=== PATIENT | female | born 1960 | race Caucasian/White ===

== ENCOUNTER 2023-02-26 19:15 | Inpatient (IN) | payer OTHER ==
[~2023-02-26] VITALS: Ht 165.1 cm; Wt 65.8 kg
[~2023-02-26 19:15] MED LIST: BUPROPION HCL100 MG PO; LORATADINE10 MG PO; LORAZEPAM1 MG PO; SYNTHROID75 MCG PO; TRIAMTERENE-HCTZ1 EA PO
[2023-02-26] MEDS ORDERED: KETOROLAC TROMETHAMINE 30 MG/ML VIAL IV STA (19:27)
[2023-02-26] MEDS ORDERED: SODIUM CHLORIDE 0.9% 1000ML 1,000 ML IV STA (19:27)
[2023-02-26] MEDS ORDERED: ACETAMINOPHEN 325 MG TAB PO ONE (19:30)
[2023-02-26 19:59] LABS: BASOPHILS % 0.3 % (0.0-1.0); EOSINOPHILS % 0.1 % (0.0-6.0); HEMATOCRIT 36.6 % (34.2-44.1); HEMOGLOBIN 12.6 g/dL (12.0-16.0); LYMPHOCYTES # (AUTO) 0.9 (1.0-3.2); LYMPHOCYTES % 9.6 % (18.0-39.1); MEAN CORPUSCULAR HGB CONC 34.4 g/dL (31-35); MEAN CORPUSCULAR VOLUME 87.1 fL (81-99); MONOCYTES # (AUTO) 1.4 (0.2-0.8); MONOCYTES % 14.9 % (4.4-11.3); NEUTROPHILS # (AUTO) 7.1 (2.1-6.9); NEUTROPHILS % 74.6 % (38.7-80.0); PLATELET COUNT 193 x10e3/uL (140-360); RED CELL DISTRIBUTION WIDTH 11.4 % (11.7-14.4)
[2023-02-26 20:06] LABS: CLARITY,URINE CLEAR (CLEAR); COLOR,URINE ORANGE (YELLOW); LEUKOCYTE ESTERASE ,URINE TRACE (NEGATIVE); NITRITE,URINE POSITIVE (NEGATIVE); PROTEIN,URINE DIPSTICK 2+ (NEGATIVE)
[2023-02-26 20:07] LABS: KETONES,URINE 1+ (NEGATIVE); URINE UROBILINOGEN 2 mg/dL (0.2 - 1)
[2023-02-26 20:21] LABS: ALBUMIN 3.4 g/dL (3.5-5.0); ANION GAP 15.8 mmol/L (8-16); CALCIUM 9.2 mg/dL (8.4-10.2); CREATININE, SERUM 1.2 mg/dL (0.57-1.11)
[2023-02-26 20:22] LABS: BACTERIA,URINE MODERATE /HPF; EPITHELIAL CELLS,URINE FEW /LPF; WBC,URINE (MAN) 21-50 /HPF (0-5)
[2023-02-26 20:25] LABS: POTASSIUM 2.8 mmol/L (3.5-5.1)
[2023-02-26] MEDS ORDERED: POTASSIUM CHLORIDE 20 MEQ TAB CR PO STA (20:46)
[2023-02-26] MEDS: SODIUM CHLORIDE 0.9% 1000ML 1,000 ML IV SCH (21:23)
[2023-02-26 23:00] VITALS: BP 96/58
[2023-02-27] VITALS (7 sets, daily range): BP systolic 90–140; BP diastolic 50–67
[2023-02-27] MEDS: SODIUM CHLORIDE 0.9% 1000ML 1,000 ML IV SCH ×3 (03:48→20:48)
[2023-02-27] MEDS: Morphine 4mg INJECTION 4 MG/ML INJ IV PRN ×4 (03:51→19:27)
[2023-02-27] MEDS ORDERED: METOPROLOL SUCC25 MG PO (04:26)
[2023-02-27] MEDS ORDERED: DOXYCYCLINE HY100 MG PO (04:28)
[2023-02-27] MEDS ORDERED: TRIAMTERENE-HCTZ1 EA PO (04:46)
[2023-02-27] MEDS ORDERED: ATORVASTATIN CA20 MG PO (04:46)
[2023-02-27] MEDS ORDERED: CETIRIZINE HCL10 MG (04:46)
[2023-02-27] MEDS ORDERED: HYOSCYAMINE0.125 MG PO (04:46)
[2023-02-27] MEDS ORDERED: ASPIRIN81 MG PO (04:46)
[2023-02-27] MEDS ORDERED: ALPRAZOLAM1 MG PO (04:46)
[2023-02-27] MEDS ORDERED: FLONASE ALLERG9.9 ML INH (04:51)
[2023-02-27] MEDS ORDERED: LEVOCETIRIZINE D5 MG (04:51)
[2023-02-27] MEDS ORDERED: KETOTIFEN FUMARA5 ML (04:51)
[2023-02-27] MEDS ORDERED: [UNRECOGNIZED DRUG - OTHER] (04:53)
[2023-02-27 06:08] LABS: BASOPHILS % 0.4 % (0.0-1.0); EOSINOPHILS % 0.4 % (0.0-6.0); HEMATOCRIT 28.7 % (34.2-44.1); HEMOGLOBIN 9.7 g/dL (12.0-16.0); LYMPHOCYTES # (AUTO) 1.4 (1.0-3.2); LYMPHOCYTES % 17.5 % (18.0-39.1); MEAN CORPUSCULAR HGB CONC 33.8 g/dL (31-35); MEAN CORPUSCULAR VOLUME 88.9 fL (81-99); MONOCYTES # (AUTO) 1.4 (0.2-0.8); MONOCYTES % 17.1 % (4.4-11.3); NEUTROPHILS # (AUTO) 5.1 (2.1-6.9); PLATELET COUNT 136 x10e3/uL (140-360); RED BLOOD COUNT 3.23 x10e6/uL (3.6-5.1); RED CELL DISTRIBUTION WIDTH 11.3 % (11.7-14.4)
[2023-02-27 07:17] LABS: ALBUMIN 2.5 g/dL (3.5-5.0); ANION GAP 12.2 mmol/L (8-16); CALCIUM 7.5 mg/dL (8.4-10.2); CREATININE, SERUM 1.03 mg/dL (0.57-1.11); POTASSIUM 3.2 mmol/L (3.5-5.1)
[2023-02-27] MEDS: ONDANSETRON HCL INJ 2MG/ML 2ML 2 MG/ML VIAL IV PRN ×3 (08:35→19:26)
[2023-02-27] MEDS ORDERED: ACETAMINOPHEN 325 MG TAB PO PRN ×2 (17:30→17:45)
[2023-02-27] MEDS ORDERED: PIPERACILLIN/TAZOBACTAM 3.375 GM VIAL ONE (20:33)
[2023-02-28] VITALS (8 sets, daily range): BP systolic 86–115; BP diastolic 51–65
[2023-02-28] MEDS: Morphine 4mg INJECTION 4 MG/ML INJ IV PRN ×2 (00:34→09:18)
[2023-02-28] MEDS: SODIUM CHLORIDE 0.9% 1000ML 1,000 ML IV SCH ×3 (05:35→22:36)
[2023-02-28 08:24] LABS: BASOPHILS % 0.4 % (0.0-1.0); EOSINOPHILS # (AUTO) 0.1 (0.0-0.4); EOSINOPHILS % 0.6 % (0.0-6.0); HEMATOCRIT 28.4 % (34.2-44.1); HEMOGLOBIN 9.6 g/dL (12.0-16.0); LYMPHOCYTES # (AUTO) 1.1 (1.0-3.2); LYMPHOCYTES % 12.5 % (18.0-39.1); MEAN CORPUSCULAR HEMOGLOBIN 30.3 pg (28-32); MEAN CORPUSCULAR HGB CONC 33.8 g/dL (31-35); MEAN CORPUSCULAR VOLUME 89.6 fL (81-99); MONOCYTES # (AUTO) 1.2 (0.2-0.8); MONOCYTES % 12.7 % (4.4-11.3); NEUTROPHILS # (AUTO) 6.6 (2.1-6.9); NEUTROPHILS % 72.9 % (38.7-80.0); PLATELET COUNT 149 x10e3/uL (140-360); RED BLOOD COUNT 3.17 x10e6/uL (3.6-5.1); RED CELL DISTRIBUTION WIDTH 11.6 % (11.7-14.4)
[2023-02-28] MEDS: ONDANSETRON HCL INJ 2MG/ML 2ML 2 MG/ML VIAL IV PRN (09:18)
[2023-02-28] MEDS ORDERED: IOPAMIDOL 610MG/1ML 300 MG/ML VIAL IV ONE (10:38)
[2023-02-28] MEDS ORDERED: DEXAMETHASONE SOD PHOS INJ 4 MG/ML SDV ONE (12:14)
[2023-02-28] MEDS ORDERED: EPHEDRINE SULFATE INJ 50 MG/ML VIAL ONE (12:14)
[2023-02-28] MEDS ORDERED: LIDOCAINE HCL 2% LOCAL INJ 5 ML SDV VIAL INJ ONE (12:14)
[2023-02-28] MEDS ORDERED: ONDANSETRON HCL INJ 2MG/ML 2ML 2 MG/ML VIAL ONE (12:14)
[2023-02-28] MEDS ORDERED: PROPOFOL IV EMULSION 10 MG/ML 20 ML VIAL ONE (12:14)
[2023-02-28] MEDS ORDERED: POVIDONE IODINE 0.05% 0.05 % ML PO ONE (12:14)
[2023-02-28] MEDS ORDERED: SEVOFLURANE INHAL SOLN 250 ML PEN BTL ONE (12:14)
[2023-02-28] MEDS ORDERED: MIDAZOLAM HCL 2 MG/2 ML VIAL ONE (12:36)
[2023-02-28] MEDS ORDERED: FENTANYL CITRATE/PF 100MCG/2 ML INJ ONE (12:36)
[2023-02-28] MEDS: CEPACOL SORE THROAT LOZENGES PO PRN ×2 (15:46→15:50)
[2023-03-01] MEDS ORDERED: MELATONIN 3 MG TAB PO PRN (01:15)
[2023-03-01] MEDS: CEPACOL SORE THROAT LOZENGES PO PRN (01:17)
[2023-03-01] MEDS: ONDANSETRON HCL INJ 2MG/ML 2ML 2 MG/ML VIAL IV PRN (02:21)
[2023-03-01] MEDS: Morphine 4mg INJECTION 4 MG/ML INJ IV PRN (02:23)
[2023-03-01] MEDS: SODIUM CHLORIDE 0.9% 1000ML 1,000 ML IV SCH (05:50)
[2023-03-01 05:52] VITALS: BP 119/67
[2023-03-01 05:54] VITALS: BP 119/67
[2023-03-01 05:55] VITALS: BP 119/67
[2023-03-01 05:58] LABS: BASOPHILS % 0.4 % (0.0-1.0); HEMATOCRIT 30.4 % (34.2-44.1); HEMOGLOBIN 10.1 g/dL (12.0-16.0); LYMPHOCYTES # (AUTO) 0.6 (1.0-3.2); LYMPHOCYTES % 7.4 % (18.0-39.1); MEAN CORPUSCULAR HEMOGLOBIN 30.1 pg (28-32); MEAN CORPUSCULAR HGB CONC 33.2 g/dL (31-35); MEAN CORPUSCULAR VOLUME 90.5 fL (81-99); MONOCYTES # (AUTO) 0.3 (0.2-0.8); MONOCYTES % 3.6 % (4.4-11.3); NEUTROPHILS # (AUTO) 6.6 (2.1-6.9); NEUTROPHILS % 87.5 % (38.7-80.0); PLATELET COUNT 193 x10e3/uL (140-360); RED BLOOD COUNT 3.36 x10e6/uL (3.6-5.1); RED CELL DISTRIBUTION WIDTH 11.3 % (11.7-14.4)
[2023-03-01 06:21] LABS: ANION GAP 13.2 mmol/L (8-16); CALCIUM 8.2 mg/dL (8.4-10.2); CREATININE, SERUM 0.77 mg/dL (0.57-1.11); POTASSIUM 3.2 mmol/L (3.5-5.1)
[2023-03-01 08:43] VITALS: BP 128/82
[2023-03-01 08:57] VITALS: BP 128/82
[2023-03-01] MEDS ORDERED: CEPHALEXIN500 MG PO (09:34)
[2023-03-01] MEDS ORDERED: POTASSIUM CHLORIDE 20 MEQ TAB CR PO ONE (10:30)
== END 2023-03-01 10:55 | disposition home or self-care (01) | DRG 660 ==
LOC: ER 19:28 → ERHOLD 22:15 → MED/SURG2 22:29 → OBSVTOIN 02-28 09:27
PROVIDERS: ADMIT Internal Medicine; ATTEND Internal Medicine
PROC: BT1D1ZZ Fluoroscopy of Right Kidney, Ureter and Bladder using Low Osmolar Contrast (ICD-10-PCS; 2023-02-28)
PROC: 0T778ZZ Dilation of Left Ureter, Via Natural or Artificial Opening Endoscopic (ICD-10-PCS; principal; 2023-02-28 11:57)
DX: N13.6 Pyonephrosis (principal); E87.1 Hypo-osmolality and hyponatremia; I31.8 Other specified diseases of pericardium; N39.0 Urinary tract infection, site not specified; E87.6 Hypokalemia; Q24.8 Other specified congenital malformations of heart; N12 Tubulo-interstitial nephritis, not specified as acute or chronic; Z20.822 Contact with and (suspected) exposure to COVID-19
CPT/HCPCS: 0223U; 36415; 71250; 74018; 74176; 74420; 80048; 80053; 81001; 83605; 83690; 84132; 85025; 87040; 87086; 87186; 93306; 96361; 99284; C1758; C1769; G0378; J1100; J1885; J2001; J2250; J2270; J2405; J2543; J7030

== ENCOUNTER → 2023-10-18 | Outpatient (REF) | payer MEDICARE ==
[~2023-10-18] MED LIST changes: +ALPRAZOLAM1 MG PO; +ASPIRIN81 MG PO; +ATORVASTATIN CA20 MG PO; +CEPHALEXIN500 MG PO; +CETIRIZINE HCL10 MG; +DOXYCYCLINE HY100 MG PO; +FLONASE ALLERG9.9 ML INH; +HYOSCYAMINE0.125 MG PO; +KETOTIFEN FUMARA5 ML; +LEVOCETIRIZINE D5 MG; +METOPROLOL SUCC25 MG PO; +[UNRECOGNIZED DRUG - OTHER]
== END ==
LOC: MAMMO 11:31
PROVIDERS: ATTEND Obstetrics & Gynecology
DX: Z12.31 Encounter for screening mammogram for malignant neoplasm of breast (principal)
CPT/HCPCS: 77067

== ENCOUNTER → 2024-10-22 | Outpatient (REF) | payer MEDICARE | LOC: MAMMO 12:41 | PROVIDERS: ATTEND Obstetrics & Gynecology | DX: Z12.31 Encounter for screening mammogram for malignant neoplasm of breast (principal) | CPT/HCPCS: 77067 ==